=== PATIENT | male | born 1950 | race Two or more races ===

== ENCOUNTER 2019-06-20 04:40 | Emergency (ER) | payer MEDICAID ==
[~2019-06-20] VITALS: Ht 165.1 cm; Wt 68.0 kg
[~2019-06-20 04:40] MED LIST: ASPIR 8181 MG ORAL; ATIVAN0.5 MG ORAL; IBUPROFEN600 MG ORAL; LEVETIRACE100 MG/1 M; LEVETIRACETAM1000 MG ORAL; LEVETIRACETAM500 MG ORAL; LISINOPRIL2.5 MG ORAL; METFORMIN HCL500 M1 ORAL; METFORMIN HCL5000 GM MC; METOPROLOL TART25 MG ORAL; PHENYTOIN100 MG/4 M ORAL; PRAVASTATIN SOD20 M1 ORAL; PRILOSEC OTC20 MG ORAL; STOOL SOFTENER250 MG PO; TAMSULOSIN HCL0.4 MG ORAL
--- NOTE | 2019-06-20 04:46 | NUR ---
ED Nurse Note: Pt RAKESH DILLON 68 from home, c/o L arm numbness as well as his tongue numb for several hours. Pt smells like alcohol but denies drinking
[2019-06-20 04:51] VITALS: BP 164/94
--- NOTE | 2019-06-20 04:53 | Emergency Room Report ---
History of Present Illness General Chief Complaint: Pain Source: Patient Present Illness HPI 68-year-old male history of hypertension, diabetes, hyperlipidemia, stroke presents with shakiness of his left hand, numbness of his tongue, dizziness x1 day, no fever no chills no chest pain no shortness of breath, patient states that this is been persisting for 1 day, no aggravating or relieving factors severity is mild, patient was brought in by EMS, patient presents for evaluation. Patient changed his story he states this is been going on for a year ever since he started taking Keppra, he states that Keppra makes his tongue feel numb and his left arm feel numb and he feels dizzy with the Keppra Patient also reported to the nurse that he also took metoprolol and felt tingling over the past 24 hours, Allergies: Coded Allergies: No Known Allergies (Unverified , 06/26/15) Patient History Past Medical History: see triage record Reviewed Nursing Documentation: PMH: Agreed; PSxH: Agreed Nursing Documentation-PMH Past Medical History: No History, Except For Hx Hypertension: Yes Hx Diabetes: Yes Hx Seizures: Yes Review of Systems Constitutional: Denies: chills, fever Eye: Denies: blurred vision, double vision ENT: Denies: throat pain, nasal discharge Respiratory: Denies: cough, shortness of breath Cardiovascular: Denies: chest pain, palpitations Gastrointestinal: Reports: nausea, vomiting; Denies: abdominal pain, diarrhea Genitourinary: Denies: dysuria, pain Musculoskeletal: Denies: back pain, muscle pain Skin: Denies: rash, lesions Neurological: Reports: numbness, dizziness; Denies: headache, focal weakness Hematologic/Lymphatic: Denies: easy bleeding, easy bruising All Other Systems: negative except mentioned in HPI Physical Exam Vital Signs Date Time Temp Pulse Resp B/P (MAP) Pulse Ox O2 Delivery O2 Flow Rate FiO2 06/20/19 04:37 98.6 84 18 164/94 (117) 100 Room Air Sp02 EP Interpretation: reviewed, normal General Appearance: well appearing, no apparent distress, alert Head: normocephalic, atraumatic Eyes: bilateral eye PERRL, bilateral eye EOMI ENT: uvula midline, moist mucus membranes Neck: supple, thyroid normal, supple/symm/no masses Respiratory: lungs clear, no respiratory distress, no retraction, no accessory muscle use Cardiovascular #1: normal peripheral pulses, regular rate, rhythm, no edema, no gallop, no murmur Gastrointestinal: non tender, soft, no guarding, no rebound Musculoskeletal: normal inspection Neurologic: alert, oriented x3, other - Patient keeps shaking his left hand, no apparent weakness patient is moving all 4 extremities. Good to nose testing intact, cranial nerves II through XII intact, 5 out of 5 strength occupational health and safety officer strength bilaterally, no pronator drift Psychiatric: mood/affect normal Skin: no rash, warm/dry Medical Decision Making Diagnostic Impression: Primary Impression: Arm paresthesia, left Additional Impressions: Medication side effect Hypomagnesemia Seizure ER Course 68-year-old male presents with vague complaints, no chest pain no shortness of breath, patient denies any new symptoms he states this is been ongoing for a year, CT brain is neg, chest x-ray is negative, labs show hypomagnesium and reduced sodium corrected Na+ 131, joint decision-making was made with patient, patient states he feels comfortable as long as his blood work is improved Patient multiple re-evaluations continues to change his story, no evidence of alcohol withdrawal, patient most likely has some baseline dementia no acute processes at this moment, low suspicion for acute stroke, patient shows no evidence of focal deficit Blood work shows hypomagnesium, patient given 3 g of magnesium, will also provide patient with normal saline by IV, for his mild hyponatremia Reevaluation 6:01 AM, patient definitely improved feels better, his muscle cramps have resolved Patient with a history of seizures 2/2 stroke, most likely caused his elevated lactic acid, he may have had a seizure prior to arrival, patient does not remember, no obvious trauma, will disposition patient home with return precautions after electrolyte repletion Will disposition patient home with return precautions Laboratory Tests Test 06/20/19 04:45 06/20/19 05:00 06/20/19 05:40 White Blood Count 10.3 K/UL (4.8-10.8) Red Blood Count 4.63 M/UL (4.70-6.10) L Hemoglobin 13.6 G/DL (14.2-18.0) L Hematocrit 39.5 % (42.0-52.0) L Mean Corpuscular Volume 85 FL (80-99) Mean Corpuscular Hemoglobin 29.3 PG (27.0-31.0) Mean Corpuscular Hemoglobin Concent 34.4 G/DL (32.0-36.0) Red Cell Distribution Width 10.5 % (11.6-14.8) L Platelet Count 255 K/UL (150-450) Mean Platelet Volume 9.4 FL (6.5-10.1) Neutrophils (%) (Auto) 70.2 % (45.0-75.0) Lymphocytes (%) (Auto) 15.6 % (20.0-45.0) L Monocytes (%) (Auto) 6.3 % (1.0-10.0) Eosinophils (%) (Auto) 6.9 % (0.0-3.0) H Basophils (%) (Auto) 0.9 % (0.0-2.0) Prothrombin Time 10.6 SEC (9.30-11.50) Prothrombin Time INR 1.0 (0.9-1.1) PTT 28 SEC (23-33) Sodium Level 128 MMOL/L (136-145) L Potassium Level 3.8 MMOL/L (3.5-5.1) Chloride Level 92 MMOL/L (98-107) L Carbon Dioxide Level 24 MMOL/L (21-32) Anion Gap 12 mmol/L (5-15) Blood Urea Nitrogen 10 mg/dL (7-18) Creatinine 1.1 MG/DL (0.55-1.30) Estimate Glomerular Filtration Rate > 60 mL/min (>60) Glucose Level 241 MG/DL (74-106) H Lactic Acid Level 3.10 mmol/L (0.4-2.0) H 2.10 mmol/L (0.4-2.0) H Calcium Level 8.9 MG/DL (8.5-10.1) Phosphorus Level 3.7 MG/DL (2.5-4.9) Magnesium Level 0.9 MG/DL (1.8-2.4) *L Total Bilirubin 0.4 MG/DL (0.2-1.0) Direct Bilirubin 0.1 MG/DL (0.0-0.3) Aspartate Amino Transferase (AST) 24 U/L (15-37) Alanine Aminotransferase (ALT) 31 U/L (12-78) Alkaline Phosphatase 102 U/L (46-116) Total Creatine Kinase 93 U/L (26-308) Creatine Kinase MB 1.1 NG/ML (0.0-3.6) Creatine Kinase MB Relative Index 1.1 Troponin I 0.000 ng/mL (0.000-0.056) Total Protein 7.4 G/DL (6.4-8.2) Albumin 4.0 G/DL (3.4-5.0) Globulin 3.4 g/dL Albumin/Globulin Ratio 1.2 (1.0-2.7) Lipase 270 U/L (73-393) Salicylates Level 1.2 ug/mL (2.8-20) L Acetaminophen Level < 2 MCG/ML (10-30) L Phenytoin (Dilantin) Level 0.5 ug/mL (10-20) L Serum Alcohol < 3 mg/dL Urine Color Pale yellow Urine Appearance Clear Urine pH 6 (4.5-8.0) Urine Specific Critz 1.010 (1.005-1.035) Urine Protein Negative (NEGATIVE) Urine Glucose (UA) 1+ (NEGATIVE) H Urine Ketones Negative (NEGATIVE) Urine Blood Negative (NEGATIVE) Urine Nitrite Negative (NEGATIVE) Urine Bilirubin Negative (NEGATIVE) Urine Urobilinogen Normal MG/DL (0.0-1.0) Urine Leukocyte Esterase Negative (NEGATIVE) Urine Opiates Screen Negative (NEGATIVE) Urine Barbiturates Screen Negative (NEGATIVE) Phencyclidine (PCP) Screen Negative (NEGATIVE) Urine Amphetamines Screen Negative (NEGATIVE) Urine Benzodiazepines Screen Negative (NEGATIVE) Urine Cocaine Screen Negative (NEGATIVE) Urine Marijuana (THC) Screen Negative (NEGATIVE) EKG Diagnostic Results EKG Time: 04:53 EP Interpretation: NSR, rate 69, QTc 396, no acute ST elevations, normal axis Rate: normal Rhythm: NSR ST Segments: no acute changes ASA given to the pt in ED: No Rhythm Strip Diag. Results Rhythm Strip Time: 05:02 EP Interpretation: yes Rate: 69 Rhythm: NSR, no PVC's, no ectopy Chest X-Ray Diagnostic Results Chest X-Ray Diagnostic Results : Chest X-Ray Ordered: Yes # of Views/Limited/Complete: 1 View Indication: Other - Numbness EP Interpretation: Yes Interpretation: no acute cardiopulmonary disease Impression: No acute disease Electronically Signed by: Octavio Allen MD CT/MRI/US Diagnostic Results CT/MRI/US Diagnostic Results : Impression Preliminary Findings Only See Final Report For Complete Findings CT HEAD Without Contrast: No acute intracranial abnormality. Encephalomalacia right temporal lobe. Diffuse atrophy. Radiologist: Toya Mccollum MD Study ready at 06:06 and initial results transmitted at 06:40 Last Vital Signs Date Time Temp Pulse Resp B/P (MAP) Pulse Ox O2 Delivery O2 Flow Rate FiO2 06/20/19 04:37 98.6 84 18 164/94 (117) 100 Room Air Disposition: HOME, SELF-CARE Condition: Improved Scripts Aspirin* (ASPIR 81*) 81 Mg Tablet. 81 MG ORAL DAILY, #30 TAB Prov: Octavio Allen MD 06/20/19 [facility] Patient Instructions: Hypomagnesemia, Peripheral Neuropathy, Seizure, Adult, [id number] Additional Instructions: The patient was provided with discharge instructions, notified to follow-up with a primary care doctor and or specialist in the next 24-48 hours, and to return to the ED if they have worsening of their symptoms. Please note that this report is being documented using [employer] technology. This can lead to erroneous entry secondary to incorrect interpretation by the dictating instrument. Octavio Allen MD Jun 20, 2019 04:53
[2019-06-20] MEDS ORDERED: ASPIR 8181 MG ORAL (05:04)
[2019-06-20 05:12] LABS: BASOPHILS % (AUTO) 0.9 % (0.0-2.0); EOSINOPHILS % (AUTO) 6.9 % (0.0-3.0); HEMATOCRIT 39.5 % (42.0-52.0); HEMOGLOBIN 13.6 G/DL (14.2-18.0); LYMPHOCYTES % (AUTO) 15.6 % (20.0-45.0); MEAN CORPUSCULAR VOLUME 85 FL (80-99); MONOCYTES % (AUTO) 6.3 % (1.0-10.0); NEUTROPHILS % (AUTO) 70.2 % (45.0-75.0); PLATELET COUNT 255 K/UL (150-450); RED BLOOD COUNT 4.63 M/UL (4.70-6.10); RED CELL DISTRIBUTION WIDTH 10.5 % (11.6-14.8); WHITE BLOOD COUNT 10.3 K/UL (4.8-10.8)
[2019-06-20 05:29] LABS: ANION GAP 12 mmol/L (5-15); BLOOD UREA NITROGEN 10 mg/dL (7-18); CALCIUM 8.9 MG/DL (8.5-10.1); CARBON DIOXIDE 24 MMOL/L (21-32); CHLORIDE 92 MMOL/L (98-107); CREATININE 1.1 MG/DL (0.55-1.30); POTASSIUM 3.8 MMOL/L (3.5-5.1); SODIUM 128 MMOL/L (136-145)
[2019-06-20 05:31] LABS: PHOSPHORUS 3.7 MG/DL (2.5-4.9)
[2019-06-20 05:36] LABS: APPEARANCE,URINE CLEAR; BILIRUBIN, URINE NEGATIVE (NEGATIVE); COLOR,URINE PALE YELLOW; GLUCOSE, URINE (UA) 1+ (NEGATIVE); KETONES,URINE NEGATIVE (NEGATIVE); LEUKOCYTE ESTERASE ,URINE NEGATIVE (NEGATIVE); NITRITE,URINE NEGATIVE (NEGATIVE); PH,URINE 6 (4.5-8.0); PROTEIN,URINE NEGATIVE (NEGATIVE); UROBILINOGEN,URINE NORMAL MG/DL (0.0-1.0)
[2019-06-20 05:43] LABS: ALANINE AMINOTRANSFERASE 31 U/L (12-78); ALBUMIN/GLOBULIN RATIO 1.2 (1.0-2.7); ALKALINE PHOSPHATASE 102 U/L (46-116); BILIRUBIN,DIRECT 0.1 MG/DL (0.0-0.3); BILIRUBIN,TOTAL 0.4 MG/DL (0.2-1.0); CKMB 1.1 NG/ML (0.0-3.6); CREATINE KINASE 93 U/L (26-308)
[2019-06-20 06:16] LABS: ASPARTATE AMINO TRANSFERASE 24 U/L (15-37)
--- NOTE | 2019-06-20 06:41 | Diagnostic Imaging Report ---
Indication: Altered mental status Technique: Contiguous 5 mm thick transaxial imaging of the head obtained in a Siemens Sensation [address] scanner. Soft tissue and bone windows generated. Automatic Exposure Control was utilized. Total Dose length Product (DLP): 1390.[address] Dose Index Volume (CTDIvol): 70.38 mGy Comparison: none Findings: Encephalomalacia in the right temporal lobe noted consistent with an old infarct. Signs of volume loss including ex vacuo dilatation of the right lateral ventricle noted. There is moderate prominence of the ventricles, basal cisterns, and cerebral sulci consistent with atrophy. Moderate, nonspecific, white matter hypoattenuation is noted throughout the brain consistent with chronic small vessel disease. There is no midline shift, edema, acute hemorrhage, mass effect, or abnormal extra-axial fluid collections. Bones are unremarkable. Impression: Old right temporal lobe infarct. No acute intracranial bleed, mass effect or edema. Moderate atrophy of the brain. Evidence of chronic small vessel disease involving white matter tracts. The CT scanner at [facility] is accredited by the [employer] and the scans are performed using dose optimization techniques as appropriate to a performed exam including Automatic Exposure control.
[2019-06-20] MEDS ORDERED: Acetaminophen 500mg (ES) tab ORAL ONE (06:45)
[2019-06-20 07:57] VITALS: BP 152/88
--- NOTE | 2019-06-20 07:57 | NUR ---
ER DISCHARGE NOTE: Patient is cleared to be discharged per ERMD, pt is aox4, on room air, with stable vital signs. pt was given dc and prescription instructions, pt was able to verbalize understanding, pt id band and iv site removed without complications. pt walked out via wheelchair and left with his brother. pt took all belongings.
--- NOTE | 2019-06-20 10:12 | Diagnostic Imaging Report ---
Indication: Dyspnea Comparison: 07/29/2018 A single view chest radiograph was obtained. Findings: Cardiomediastinal appearance is within normal limits for age. The lungs are clear. Pulmonary vascularity is appropriate. The diaphragmatic contour is smooth and costophrenic angles are sharp. No pleural effusions are identified. The bones are osteopenic. Impression: No acute findings
== END 2019-06-20 07:57 | disposition home or self-care (01) ==
LOC: EDBD 04:40 → EMR 04:56 → MERGE 04:56 → EMR 07:57
DX: T42.6X5A Adverse effect of other antiepileptic and sedative-hypnotic drugs, initial encounter (principal); R20.2 Paresthesia of skin; E83.42 Hypomagnesemia; R56.9 Unspecified convulsions; E11.9 Type 2 diabetes mellitus without complications; I10 Essential (primary) hypertension; Y92.9 Unspecified place or not applicable
CPT/HCPCS: 36415; 70450; 71045; 80053; 80185; 80307; 80329; 81003; 82248; 82550; 82553; 83605; 83690; 83735; 84100; 84484; 85025; 85610; 85730; 93005; 96361; 96365; 96366; 96375; 99284; J2405

== ENCOUNTER 2019-06-22 05:59 | Emergency (ER) | payer MEDICAID ==
[~2019-06-22] VITALS: Ht 160 cm; Wt 72.6 kg
[2019-06-22 06:00] VITALS: BP_SYST 135; BP_SYST 166; BP_DIAS 89; BP_DIAS 90
--- NOTE | 2019-06-22 06:00 | NUR ---
ED Nurse Note: Pt brought in by [facility] via gurney. pt c/o generalized weakness. c/p pain of 7/10 to left leg. pt is alert x4. VSS
[2019-06-22] MEDS ORDERED: KEPPRA1000 MG ORAL (06:10)
[2019-06-22] MEDS ORDERED: DOCUSATE SODIU100 M2 ORAL (06:10)
[2019-06-22] MEDS ORDERED: FLOMAX0.4 MG ORAL (06:10)
[2019-06-22] MEDS ORDERED: METFORMIN HCL1000 M1 ORAL (06:10)
[2019-06-22] MEDS ORDERED: ATORVASTATIN CA40 MG ORAL (06:10)
[2019-06-22] MEDS ORDERED: LISINOPRIL20 MG ORAL (06:10)
--- NOTE | 2019-06-22 06:18 | NUR ---
ED Nurse Note: upon further assessment, pt also c/o weakness to left leg. pt states he fell at home and may or may not have lost consciousness. pt unable to recall.
[2019-06-22] MEDS ORDERED: levETIRAcetam 500 MG in D5W 110 ML IV ONE (06:30)
[2019-06-22] MEDS ORDERED: LORazepam Inj 2mg/ml 1ml IV ONE (06:45)
[2019-06-22 06:49] LABS: ANION GAP 13 mmol/L (5-15); BLOOD UREA NITROGEN 6 mg/dL (7-18); CALCIUM 9.3 MG/DL (8.5-10.1); CARBON DIOXIDE 24 MMOL/L (21-32); CHLORIDE 101 MMOL/L (98-107); CREATININE 1.2 MG/DL (0.55-1.30); POTASSIUM 3.8 MMOL/L (3.5-5.1); SODIUM 137 MMOL/L (136-145)
[2019-06-22 06:53] LABS: ALANINE AMINOTRANSFERASE 30 U/L (12-78); ALBUMIN 4.2 G/DL (3.4-5.0); ALKALINE PHOSPHATASE 88 U/L (46-116); ASPARTATE AMINO TRANSFERASE 26 U/L (15-37); BILIRUBIN,TOTAL 0.5 MG/DL (0.2-1.0)
[2019-06-22 07:09] LABS: BASOPHILS % (AUTO) 0.8 % (0.0-2.0); EOSINOPHILS % (AUTO) 9.7 % (0.0-3.0); HEMATOCRIT 40.5 % (42.0-52.0); HEMOGLOBIN 14.1 G/DL (14.2-18.0); LYMPHOCYTES % (AUTO) 26.2 % (20.0-45.0); MEAN CORPUSCULAR VOLUME 85 FL (80-99); MONOCYTES % (AUTO) 9.5 % (1.0-10.0); NEUTROPHILS % (AUTO) 53.9 % (45.0-75.0); PHOSPHORUS 2.8 MG/DL (2.5-4.9); PLATELET COUNT 258 K/UL (150-450); RED BLOOD COUNT 4.77 M/UL (4.70-6.10); RED CELL DISTRIBUTION WIDTH 10.7 % (11.6-14.8); WHITE BLOOD COUNT 8.4 K/UL (4.8-10.8)
--- NOTE | 2019-06-22 07:12 | NUR ---
ED Nurse Note: report given to joseph verma
--- NOTE | 2019-06-22 07:13 | NUR ---
ED Nurse Note: Received report from Laura, patient in CT scan.
--- NOTE | 2019-06-22 07:25 | NUR ---
ED Nurse Note: Patient came back from CT in stable condition, on a phototypesetting equipment monitor with stable vital signs. patient provided with urinal, able to use urinal by himself
[2019-06-22 07:41] VITALS: BP 123/97
--- NOTE | 2019-06-22 09:17 | Diagnostic Imaging Report ---
Indication: Left shoulder pain Technique: 3 views of the left shoulder Comparison: none Findings: No acute fractures. No dislocations. The joint spaces are preserved. The bones appear somewhat osteoporotic Impression: No acute process
--- NOTE | 2019-06-22 09:40 | Emergency Room Report ---
History of Present Illness General Chief Complaint: Generalized Weakness Source: Patient, Medical Record Present Illness HPI Patient is a 68-year-old male who presents after increased shakiness and loss of consciousness. Patient reports having prior history of seizure disorder. He had recently had an emergency department visit after increased weakness. He was noted to have prior history of CVA with a resulting weakness. Patient is currently taking Keppra for seizure disorder. He had reportedly been compliant with his medications. He denies any alcohol use. Patient had been noted to have increased tremor. Allergies: Coded Allergies: No Known Allergies (Unverified , 06/21/19) Patient History Past Medical History: see triage record, CVA/TIA, seizures Reviewed Nursing Documentation: PMH: Agreed; PSxH: Agreed Nursing Documentation-PMH Hx Hypertension: Yes Hx Diabetes: Yes - NIDDM Hx Gastrointestinal Problems: No - BPH Hx Neurological Problems: Yes - CVA IN 2017, L SIDE WEAKNES, ATAXIA Hx Seizures: Yes - UNK SZ DISORDER Review of Systems All Other Systems: limited Physical Exam Vital Signs Date Time Temp Pulse Resp B/P (MAP) Pulse Ox O2 Delivery O2 Flow Rate FiO2 06/22/19 05:54 98.6 101 18 185/98 (127) 98 Room Air 06/22/19 06:00 100 General Appearance: alert, GCS 15, Chronically Ill ENT: hearing grossly normal Neck: limited range of motion Respiratory: chest non-tender, lungs clear Cardiovascular #1: normal peripheral pulses, no edema Gastrointestinal: normal inspection Musculoskeletal: other - left shoulder pain Neurologic: alert, other Skin: no rash Medical Decision Making Diagnostic Impression: Primary Impression: Palpitations Additional Impressions: Seizure Shoulder contusion ER Course Patient presented for loss of consciousness. Differential diagnosis include was not limited to seizure, CVA, arrhythmia, among others. EKG interpreted by me showed normal sinus rhythm with a rate of [address] or T wave changes. There was notably some tremor artifact. Patient was given IV Ativan as well as loaded with IV Keppra. CT the head was noted patient's recent fall. CT the head read by radiology showed no evidence of acute intracranial hemorrhage old CVA. Patient was given IV magnesium. Patient appears to be more unsteady due to tremor. Dr. Sweeney from [facility] was contacted for transfer to [facility]. Labs Test 06/22/19 06:10 White Blood Count 8.4 K/UL (4.8-10.8) Red Blood Count 4.77 M/UL (4.70-6.10) Hemoglobin 14.1 G/DL (14.2-18.0) Hematocrit 40.5 % (42.0-52.0) Mean Corpuscular Volume 85 FL (80-99) Mean Corpuscular Hemoglobin 29.5 PG (27.0-31.0) Mean Corpuscular Hemoglobin Concent 34.8 G/DL (32.0-36.0) Red Cell Distribution Width 10.7 % (11.6-14.8) Platelet Count 258 K/UL (150-450) Mean Platelet Volume 8.2 FL (6.5-10.1) Neutrophils (%) (Auto) 53.9 % (45.0-75.0) Lymphocytes (%) (Auto) 26.2 % (20.0-45.0) Monocytes (%) (Auto) 9.5 % (1.0-10.0) Eosinophils (%) (Auto) 9.7 % (0.0-3.0) Basophils (%) (Auto) 0.8 % (0.0-2.0) Sodium Level 137 MMOL/L (136-145) Potassium Level 3.8 MMOL/L (3.5-5.1) Chloride Level 101 MMOL/L (98-107) Carbon Dioxide Level 24 MMOL/L (21-32) Anion Gap 13 mmol/L (5-15) Blood Urea Nitrogen 6 mg/dL (7-18) Creatinine 1.2 MG/DL (0.55-1.30) Estimat Glomerular Filtration Rate > 60 mL/min (>60) Glucose Level 249 MG/DL (74-106) Calcium Level 9.3 MG/DL (8.5-10.1) Phosphorus Level 2.8 MG/DL (2.5-4.9) Magnesium Level 1.2 MG/DL (1.8-2.4) Total Bilirubin 0.5 MG/DL (0.2-1.0) Aspartate Amino Transf (AST/SGOT) 26 U/L (15-37) Alanine Aminotransferase (ALT/SGPT) 30 U/L (12-78) Alkaline Phosphatase 88 U/L (46-116) Troponin I 0.000 ng/mL (0.000-0.056) Total Protein 8.2 G/DL (6.4-8.2) Albumin 4.2 G/DL (3.4-5.0) Globulin 4.0 g/dL Albumin/Globulin Ratio 1.0 (1.0-2.7) Serum Alcohol < 3 mg/dL Last Vital Signs Date Time Temp Pulse Resp B/P (MAP) Pulse Ox O2 Delivery O2 Flow Rate FiO2 06/22/19 07:41 98.6 67 16 123/97 100 Room Air 100 Status: improved Disposition: HOME, SELF-CARE Condition: Stable Referrals: NON PHYSICIAN (PCP) Baljinder Carlson MD Jun 22, 2019 09:40
--- NOTE | 2019-06-22 10:03 | Diagnostic Imaging Report ---
Indications: Trauma, fall, head injury, pain Technique: Spiral acquisitions obtained through the brain. Angled axial and coronal 5 x 5 mm slices were reconstructed. Total dose length product 1291.63 mGycm. CTDI vol(s) 70.38 mGy. Dose reduction achieved using automated exposure control Comparison: None. Findings: There is encephalomalacia involving the right temporal lobe and a slight extent the right posterior parietal lobe. There is marked age related cortical volume loss, involving the frontal lobe and anterior parietal lobe. No acute intracranial hemorrhage or edema, mass effect, or midline shift. There is age-related enlargement of the ventricles as well. Otherwise normal ferraro-white differentiation. Visualized orbits and sinuses are unremarkable. The calvarium is intact. Impression: Chronic age related changes. Negative for acute intracranial bleed or mass effect Evidence of old right temporal and parietal infarct The CT scanner at [facility] is accredited by the [employer] and the scans are performed using protocols designed to limit radiation exposure to as low as reasonably achievable to attain images of sufficient resolution adequate for diagnostic evaluation.
[2019-06-22 10:52] VITALS: BP 117/82
--- NOTE | 2019-06-22 11:59 | NUR ---
ED Nurse Note: Report given to Jessy GARCIA of [facility] unit #[id number]. Pt transported via gurney with all belongings sent with him. Stable for transfer.
[2019-06-22 12:02] VITALS: BP 154/70
--- NOTE | 2019-06-22 13:16 | Cardiology Report ---
APPROVED REPORT EKG Measurement Heart [id number] CT [id number] Normal sinus rhythm Nonspecific T wave abnormality Abnormal ECG
== END 2019-06-22 12:02 | disposition home or self-care (01) ==
LOC: EDBD 05:59 → EMR 06:49
DX: R00.2 Palpitations (principal); G40.909 Epilepsy, unspecified, not intractable, without status epilepticus; S40.012A Contusion of left shoulder, initial encounter; X58.XXXA Exposure to other specified factors, initial encounter; Y92.9 Unspecified place or not applicable; I10 Essential (primary) hypertension; E11.9 Type 2 diabetes mellitus without complications; I69.393 Ataxia following cerebral infarction; I69.354 Hemiplegia and hemiparesis following cerebral infarction affecting left non-dominant side; Z79.899 Other long term (current) drug therapy
CPT/HCPCS: 36415; 70450; 73030; 80053; 80329; 82962; 83735; 84100; 84484; 85025; 93005; 96361; 96365; 96375; 99284; J1953

== ENCOUNTER 2020-06-20 11:42 | Emergency (ER) | payer MEDICAID ==
[~2020-06-20] VITALS: Ht 165.1 cm; Wt 72.6 kg
[~2020-06-20 11:42] MED LIST changes: +ATORVASTATIN CA40 MG ORAL; +DOCUSATE SODIU100 M2 ORAL; +FLOMAX0.4 MG ORAL; +KEPPRA1000 MG ORAL; +LISINOPRIL20 MG ORAL; +METFORMIN HCL1000 M1 ORAL
--- NOTE | 2020-06-20 11:42 | NUR ---
ED Nurse Note: patient brought into ED from home by ambulance RA 26, brother called ambulance because patient is having weakness and unable to take care of himself at home. Dr. Allen at bedside. patient reports syncopal episode at home last night and hit his head, c/o headache at this time. per brother and patient, patient has been having weakness and non-epileptic tremors. patient is alert awake x3 remembers what happened yesterday, able to make needs known. patient placed on a hospital gown, on a child monitor. BS on the scene 137.
[2020-06-20 11:55] VITALS: BP 151/75
[2020-06-20 12:10] LABS: EOSINOPHILS % (AUTO) 9.8 % (0.0-3.0); HEMATOCRIT 39.7 % (42.0-52.0); HEMOGLOBIN 13.4 G/DL (14.2-18.0); LYMPHOCYTES % (AUTO) 25.2 % (20.0-45.0); MEAN CORPUSCULAR VOLUME 89 FL (80-99); MONOCYTES % (AUTO) 7.4 % (1.0-10.0); NEUTROPHILS % (AUTO) 56.7 % (45.0-75.0); PLATELET COUNT 177 K/UL (150-450); RED BLOOD COUNT 4.48 M/UL (4.70-6.10); RED CELL DISTRIBUTION WIDTH 10.7 % (11.6-14.8); WHITE BLOOD COUNT 8.2 K/UL (4.8-10.8)
[2020-06-20 12:23] LABS: ANION GAP 11 mmol/L (5-15); BLOOD UREA NITROGEN 9 mg/dL (7-18); CALCIUM 8.5 MG/DL (8.5-10.1); CARBON DIOXIDE 26 MMOL/L (21-32); CHLORIDE 97 MMOL/L (98-107); CREATININE 1.2 MG/DL (0.55-1.30); POTASSIUM 3.8 MMOL/L (3.5-5.1); SODIUM 134 MMOL/L (136-145)
[2020-06-20 12:27] LABS: ALANINE AMINOTRANSFERASE 37 U/L (12-78); ALBUMIN 3.9 G/DL (3.4-5.0); ALBUMIN/GLOBULIN RATIO 1.2 (1.0-2.7); ALKALINE PHOSPHATASE 114 U/L (46-116); ASPARTATE AMINO TRANSFERASE 26 U/L (15-37); BILIRUBIN,TOTAL 0.3 MG/DL (0.2-1.0)
--- NOTE | 2020-06-20 13:02 | NUR ---
ED Nurse Note: patient taken to CT scan.
--- NOTE | 2020-06-20 13:09 | Diagnostic Imaging Report ---
Procedure: XRAY Chest 1v Reason for study: Reason For Exam: COUGH Comparison films: None. FINDINGS: A single one view chest is obtained. Vascularity is normal. The lung dyer are clear bilaterally. Cardiac and mediastinal silhouette are within normal limits. CP angles are sharp. The bony thorax appear unremarkable. IMPRESSION: NO ACUTE CARDIOPULMONARY DISEASE.
--- NOTE | 2020-06-20 13:22 | NUR ---
ED Nurse Note: patient came back from CT scan.
--- NOTE | 2020-06-20 13:57 | Diagnostic Imaging Report ---
EXAM: CT CT Head no Contrast INDICATION: Reason For Exam: SYNCOPE. TECHNIQUE: Axial images of the brain were obtained with subsequent sagittal and coronal reformats. All CT scans at this facility are performed using dose modulation techniques as appropriate to a performed exam including the following: automated exposure control with adjustment of the mA and/or kV according to patient size. COMPARISON STUDY: None. RADIATION DOSE: CTDIvol: 53.4 mGy DLP: 1072.2 mGy-cm Dose information generated by the CT scanner is available in PACS. FINDINGS: There is age related senescent changes with ventricular and sulcal prominence. White matter micro-ischemic changes noted. There is old infarct in the right temporal region with volume loss and encephalomalacia. There is no acute large territory cortical infarct, hemorrhage, mass effect or shift. Ventricles and cisterns as well as brainstem and posterior fossa appear unremarkable. The sellar region is normal. Sinuses, mastoid air cells and bony calvarium appear intact. IMPRESSION: Age related senescent changes and old right temporal infarct with encephalomalacia. No acute intracranial abnormality.
--- NOTE | 2020-06-20 14:05 | Diagnostic Imaging Report ---
EXAM: CT CT C Spine no Contrast CLINICAL HISTORY: Neck pain. TECHNIQUE: Axial images obtained through the cervical spine with subsequent sagittal and coronal reformat images. All CT scans at this facility are performed using dose modulation techniques as appropriate to a performed exam including the following: automated exposure control with adjustment of the mA and/or kV according to patient size. RADIATION DOSE: CTDIvol: 8.2 mGy DLP: 208.1 mGy-cm Dose information generated by the CT scanner is available in PACS. COMPARISON: None FINDINGS: There is anatomic alignment. Vertebral bodies are intact without compression deformity. There is no fracture, bony lesions or erosions. On image 31 of the sagittal reformats, there is suggestion of a vertical lucency through the right superior aspect of C2 vertebral body. However no axial or coronal abnormality demonstrated and this is likely volume averaging of a cleft near the base of the odontoid. Similar structure identified on the contralateral left side. Diffuse spondylosis is noted with multilevel disc space narrowing. Exuberant anterior bridging osteophytes noted. There is no paraspinal soft tissue abnormality. IMPRESSION: NO ACUTE FRACTURE OR MALALIGNMENT. DEGENERATIVE CHANGES WITH EXUBERANT BRIDGING OSTEOPHYTES NOTED THROUGHOUT THE CERVICAL SPINE.
--- NOTE | 2020-06-20 14:17 | Emergency Room Report ---
History of Present Illness General Chief Complaint: Generalized Weakness Source: Patient Present Illness HPI 69-year-old male with past medical history of seizure disorder on Keppra brought in by ambulance for syncopal episode. Patient suffered a syncopal episode yesterday associated with head trauma and loss of consciousness. For this, he was seen at [facility] this morning and was discharged with a diagnosis of generalized weakness. Patient does not recall the last time he had a breakthrough seizure. He is compliant with his medication. According to EMS, brother states that he is no longer to provide care for his brother given all his medical conditions and his advanced age. Denies fever, vision changes, neck pain, focal weakness, chest pain, shortness of breath, nausea, vomiting, diarrhea, melena or hematochezia The patient's symptoms were gradual onset, severity was moderate, duration since 1 day. Quality: Aching Severity: Moderate Past medical history: Seizure disorder Past surgical history: Denies Smoking: Denies Alcohol use: Denies Drug use: Denies Review of systems: CONST: No fevers or chills, No night sweats PULMONARY: No productive cough, No shortness of breath CARDIAC: No chest pain, No palpitations GI: No vomiting, No diarrhea , No melena_or_BRBPR : No dysuria, No hematuria, No discharge NEURO: No new_focal_weakness_or_numbness, No confusion, No vision changes 14 point Review of Systems is otherwise negative except per HPI Physical Exam: GENERAL: Awake_alert_ nontoxic, no acute distress Spo2 98% on RA -normal EYES: Extraocular muscles are intact. Conjunctivae clear. Lids without swelling ENT: External nose and ear normal_in_appearance. Oropharynx clear. Head_ atraumatic, Moist_oral_mucosa NECK: No JVD. No meningismus. No thyromegaly. Supple. Trachea midline RESP: Normal respiratory effort. Symmetric rise. No stridor. Clear_to_ auscultation_No_rales_No_wheezes CARDIAC: Regular rate and regular rhythm on_auscultation No_significant pedal edema. ABDOMEN: Soft. Nondistended. Nontender_No_rebound_or_guarding. MSK: Normal muscle tone, without rigidity. Extremities without asymmetric deformity or swelling. SKIN: Warm and dry. No visible cyanosis or pallor NEUROLOGIC: Alert, oriented x3. Motor_and_sensation_grossly_intact. No truncal ataxia. Gait_normal Psych: Normal mood and affect, normal judgment and insight - COORDINATION OF CARE Case was discussed with: Patient , Patient's Physician Any labs and imaging that were ordered were interpreted as part of the medical decision making: Medical Decision Making/Plan: Differential diagnosis for the patients symptoms include , malignant arrhythmias, obstructive heart disease (critical aortic stenosis, hypertrophic cardiomyopathy), acute anemia, severe dehydration, electrolyte abnormalities, among others. Patient's exam shows shows no acute focal neurologic deficit. Trauma survey is unremarkable. There are no REANNA/T/L-spine step-offs or deformities. EKG shows no signs of malignant arrhythmia such as Brugada syndrome, delta wave , epsilon wave, significant heart block, or QTc >500. He does have lateral T wave inversions. No acute STEMI CXR shows no acute disease Troponin is negativex1. Labs show no severe electrolyte derangement such as severe hyponatremia, hypokalemia, acidosis, or hypoglycemia. CT head and C-spine are unremarkable for any evidence of acute traumatic injury. 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 The patient denies any external blood loss and has no significant pallor or evidence of acute anemia as a cause of their symptoms. Hemoglobin is not severely low, and acute blood transfusion is not indicated. In addition, the patient has no loud murmur or evidence of significant obstructive heart disease, symptoms are not in the setting of exertion. The patient is neurologically intact, with normal cerebellar exam, without any evidence of central vertigo as a cause of their symptoms. They appear well hydrated without any evidence of severe dehydration or acute hypovolemia. However, given the patients risk factors, the patient would benefit from admission to observation for continuous cardiac monitoring, given the possibility of cardiac syncope. I spoke with Dr. Frazier, and reviewed the patients presentation, workup, results, and treatment. They will admit the patient for further care and evaluation, and assume care of the patient at this time. 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 Nursing Documentation-PMH Past Medical History: No History, Except For Hx Hypertension: Yes Hx Diabetes: Yes - NIDDM Hx Gastrointestinal Problems: No - BPH Hx Neurological Problems: Yes - CVA IN 2017, L SIDE WEAKNES, ATAXIA Hx Seizures: Yes - UNK SZ DISORDER Physical Exam Vital Signs Date Time Temp Pulse Resp B/P (MAP) Pulse Ox O2 Delivery O2 Flow Rate FiO2 06/20/20 11:31 98.4 92 16 138/90 (106) 98 Room Air Sp02 EP Interpretation: reviewed, normal Medical Decision Making Diagnostic Impression: Primary Impression: Syncope Additional Impression: Seizure EKG Diagnostic Results PA Scribe Text 12-lead EKG (interpreted by me) Time: 1207 Indication: Rhythm analysis Tracing visualized and Interpreted by me. Rhythm: Normal sinus rhythm Rate: 75 bpm QTc: 410 Morphology: No_significant_ST_elevations_or_depressions, No STEMI Impression: Normal sinus rhythm, lateral T wave inversion Rhythm Strip Diag. Results TERE Scribe Hector Chest X-Ray: Views: [ 1 ] view(s) Indication: syncope Findings: Normal heart size. Mediastinum normal. No infiltrate. Impression: NAD The X-ray(s) were independently viewed and interpreted contemporaneously Electronically signed by Mari saleem DO Reevaluation Time: 14:17 Last Vital Signs Date Time Temp Pulse Resp B/P (MAP) Pulse Ox O2 Delivery O2 Flow Rate FiO2 06/20/20 12:00 80 16 Room Air 06/20/20 11:55 98.4 151/75 95 Status: improved Disposition: ADMITTED INPATIENT Admit Decision Time: 14:17 Condition: Stable Referrals: NON PHYSICIAN (PCP) Mari Allen D.O. Jun 20, 2020 14:17
[2020-06-20] MEDS ORDERED: Aspirin EC 325mg tab ORAL SCH (14:30)
[2020-06-20] MEDS ORDERED: Morphine Sulfate 4mg/ml Inj (IV USE ONLY) IVP ONE ×2 (14:30→19:30)
[2020-06-20] MEDS ORDERED: levETIRAcetam 1,000mg/NS100ml 100 ML IVPB ONE (14:30)
[2020-06-20] MEDS ORDERED: unable to recall (15:06)
[2020-06-20 16:38] VITALS: BP 161/87
--- NOTE | 2020-06-20 17:36 | NUR ---
ED Nurse Note: report given to Jessy Doss, endorsed all plan of care to Jessy DOSS at [facility], at [phone]
--- NOTE | 2020-06-20 18:55 | NUR ---
ED Nurse Note: patient resting comfortably in bed, water provided as requested, patient tolerated without complication.
--- NOTE | 2020-06-20 19:11 | NUR ---
HAND-OFF: Report given to Rebeca Santana RN.
--- NOTE | 2020-06-20 19:15 | NUR ---
ED Nurse Note: Recieved report to resume care, pt in bedf awake and alert, pt is shaking and moaning and groaning due to severe pain from headache and leg cramps, pt immediately placed on cardiac monitoring, b/p high, IV site patent, informed, will medicate as ordeered while waiting for pt transport to
[2020-06-20 19:25] VITALS: BP 184/86
--- NOTE | 2020-06-20 20:30 | NUR ---
ED Nurse Note: Meds given for pain slightly effective, pt having leg cramps intermittently which causes sudden, seveere pain, pt remains on cardiac monitoring, no changes or seizure activity oited, IV site patent, pt remains awake and alert, waiting for ambulance transport for pt transfer.
[2020-06-20 20:45] VITALS: BP 169/86
[2020-06-20] MEDS ORDERED: LORazepam Inj 2mg/ml 1ml IV ONE (20:45)
[2020-06-20 20:50] VITALS: BP 169/86
--- NOTE | 2020-06-20 20:50 | NUR ---
ED Nurse Note: [facility] ambulance has arrived for pt transport, pt is awake and alert and continues to c/o severe left leg pain from cramps, no SZ activity noted, v/s stable, no CP or SOB, pt has all belongings, pt medicated with Ativan prior to leaving for poss sz activity, NAD noted during opt transport by [facility] rig#[id number], transfer forms given to [place] - local flatbed driver.
== END 2020-06-20 20:50 | disposition short-term general hospital (02) ==
LOC: EDBD 11:42 → EMR 11:45
DX: R55 Syncope and collapse (principal); G40.909 Epilepsy, unspecified, not intractable, without status epilepticus; I10 Essential (primary) hypertension; E11.9 Type 2 diabetes mellitus without complications; G81.94 Hemiplegia, unspecified affecting left nondominant side; R05 Cough
CPT/HCPCS: 36415; 70450; 71045; 72125; 80053; 84484; 85025; 96365; 96375; 96376; J1953; J2270; J2405; U0002; Z7502; 99285